=== PATIENT | female | born 1955 | race Hispanic/Latino ===

== ENCOUNTER → 2020-05-02 | Outpatient (CLI) | payer OTHER | LOC: MAMMO 16:02 | PROVIDERS: ATTEND Family Medicine | DX: Z12.31 Encounter for screening mammogram for malignant neoplasm of breast (principal) | CPT/HCPCS: 77067 ==

== ENCOUNTER → 2020-06-02 | Outpatient (CLI) | payer OTHER ==
--- NOTE | 2020-06-02 16:37 | Diagnostic Imaging Report ---
EXAM: BONE MINERAL DENSITY HISTORY: Osteoporosis COMPARISON: None DISCUSSION: Evaluation of the left hip and lumbar spine was performed utilizing DEXA Hologic bone densitometer. The study is technically adequate. The patient's fracture risk is compared to an age-matched control. The patient denies prior surgery/fracture of the spine, hips or forearm. Left hip femoral neck bone mineral density: 0.71 g/cm2, T-score is -1.4, Z-score is 0. Left hip total bone mineral density: 0.851 g/cm2, T-score is -0.8, Z-score is 0.2. Lumbar spine total bone mineral density: 0.967 gm/cm2, T-score is -0.7, Z-score is 1. Impression: Bone mineralization by WHO Classification is osteopenia, the fracture risk is increased. World Health Organization Fracture Risk Assessment Tool estimates 10 year fracture risk of 4.4% for major osteoporotic fracture and 0.3% for hip fracture. Fracture probability calculated for an untreated patient and probability may be lower if patient has received treatment. Signed by: Dr. Darrion Banerjee M.D. on 06/02/2020 4:34 PM
== END ==
LOC: DX 15:50
PROVIDERS: ATTEND Obstetrics & Gynecology
DX: M85.89 Other specified disorders of bone density and structure, multiple sites (principal)
CPT/HCPCS: 77080

== ENCOUNTER → 2021-03-09 | Outpatient (CLI) | payer MEDICARE, OTHER | LOC: RAD 16:15 | PROVIDERS: ATTEND Internal Medicine | DX: M79.645 Pain in left finger(s) (principal) ==

== ENCOUNTER → 2022-07-09 | Outpatient (CLI) | payer MEDICARE, OTHER | LOC: MAMMO 15:27 | PROVIDERS: ATTEND Internal Medicine | DX: Z12.31 Encounter for screening mammogram for malignant neoplasm of breast (principal); M85.88 Other specified disorders of bone density and structure, other site | CPT/HCPCS: 77067; 77080 ==